=== PATIENT | female | born 1955 | race Caucasian/White ===

== ENCOUNTER 2018-03-25 13:39 | Outpatient (CLI) | payer OTHER | END 2018-03-25 13:40 | disposition home or self-care (01) | LOC: BICMAMMO 13:39 | PROVIDERS: ATTEND Obstetrics & Gynecology | DX: Z12.31 Encounter for screening mammogram for malignant neoplasm of breast (principal); Z85.3 Personal history of malignant neoplasm of breast | CPT/HCPCS: 77063; 77067 ==

== ENCOUNTER 2018-09-30 10:41 | Outpatient (CLI) | payer OTHER ==
--- NOTE | 2018-09-30 11:02 | RAD ---
CHEST TWO VIEWS: History: Chest pain. Comparison: 01-24-09 FINDINGS: Heart size is within normal limits. Minimal increased markings bilaterally without confluent pneumoni a, overt edema, or pleural effusion. IMPRESSION: Minimal increased markings bilaterally without evidence of pneumonia or other acute process. Atherosc lerosis of the aorta. POS: [facility]
== END 2018-09-30 10:42 | disposition home or self-care (01) ==
LOC: BICRAD 10:41
PROVIDERS: ATTEND Family Medicine
DX: Z01.818 Encounter for other preprocedural examination (principal); I70.0 Atherosclerosis of aorta
CPT/HCPCS: 36415; 71046; 80053; 83036; 84443; 84466; 85025; 86803